=== PATIENT | female | born 1970 | race Two or more races ===

== ENCOUNTER 2022-06-06 07:34 | Day surgery (SDC) | payer MEDICAID ==
[2022-06-04 11:00] LABS: Basophils # (auto) 0.1 10 ^3/uL (0-0.2); Basophils % (auto) 0.6 % (0.0-2.0); Eosinophils # (auto) 0.3 10 ^3/uL (0-0.8); Eosinophils % (auto) 3.6 % (0.0-7.0); Hematocrit 36.9 % (36.0-46.0); Hemoglobin 11.4 g/dL (12.2-16.2); Lymphocytes # (auto) 1.8 10 ^3/uL (0.4-5.4); Lymphocytes % (auto) 19.3 % (10.0-50.0); Mean Corpuscular Hemoglobin 26.2 pg (28.0-32.0); Mean Corpuscular Volume 84.6 fL (80.0-100.0); Monocytes # (auto) 0.8 10 ^3/uL (0-1.3); Monocytes % (auto) 8.7 % (0.0-12.0); Neutrophils # (auto) 6.4 10 ^3/uL (1.6-8.6); Neutrophils % (auto) 67.8 % (37.0-80.0); Nucleated Red Blood Cells % 0.2 %; Red Blood Cells 4.36 10^6/uL (4.0-5.20); Urine Bacteria NONE SEEN /hpf (None Seen); Urine Blood 3+ /uL (Negative); Urine Specific Gravity 1.015 (1.001-1.035); Urine WBC 10 /hpf (0 - 5); White Blood Cell 9.5 10^3/uL (4.4-10.8)
[2022-06-04 11:11] LABS: INR 1.05 (0.9-1.15); Partial Thromboplastin Time 22.5 sec (24.6-33.4)
[2022-06-04 12:12] LABS: Albumin 3.4 g/dL (3.4-5.0); Calcium 8.6 mg/dL (8.5-10.1); Potassium 4.2 mmol/L (3.5-5.1)
[2022-06-04 12:17] LABS: BUN/Creatinine Ratio 13.2; Bilirubin, Total 0.5 mg/dL (0.2-1.0); Total Protein 6.4 g/dL (6.4-8.2)
[~2022-06-06] VITALS: Ht 160 cm; Wt 81.6 kg
[~2022-06-06 07:34] MED LIST: ATOR20TA50 PO; BUSP15TA60 PO; CLON0.5T3 PO; DULO60CA PO; GABA-339 PO; HYDR50CA2 PO; LISI40TA11 PO; OMEP20TA PO; SERT50TA19 PO
[2022-06-06] MEDS ORDERED: fentaNYL CITRATE 100 MCG/2 ML VL ONE (09:12)
[2022-06-06] MEDS ORDERED: MIDAZOLAM HCL 2MG/2ML 2ml VIAL (1mg/ml) ONE (09:13)
[2022-06-06] MEDS ORDERED: PROPOFOL 10 MG/ML 20 ML IV ONE (09:16)
[2022-06-06] MEDS ORDERED: DexAMETHasone SOD PHOS 10MG/1ML VIAL INJ ONE (09:16)
[2022-06-06] MEDS ORDERED: MEPERIDINE HCL (25 MG/ML) 1ML VIAL ONE (09:16)
[2022-06-06 09:55] VITALS: BP 154/82
== END 2022-06-06 10:08 | disposition home or self-care (01) ==
LOC: GI 07:34
PROVIDERS: ATTEND Internal Medicine Gastroenterology
DX: K62.5 Hemorrhage of anus and rectum (principal); D12.5 Benign neoplasm of sigmoid colon; D12.8 Benign neoplasm of rectum; K64.8 Other hemorrhoids; K57.30 Diverticulosis of large intestine without perforation or abscess without bleeding; K21.9 Gastro-esophageal reflux disease without esophagitis; F32.A Depression, unspecified; E66.9 Obesity, unspecified; I10 Essential (primary) hypertension; E78.5 Hyperlipidemia, unspecified; F41.9 Anxiety disorder, unspecified; G47.00 Insomnia, unspecified; Z90.49 Acquired absence of other specified parts of digestive tract; Z68.32 Body mass index [BMI] 32.0-32.9, adult; Z20.822 Contact with and (suspected) exposure to COVID-19
CPT/HCPCS: 36415; 45380; 45385; 80053; 81001; 81025; 84702; 85025; 85610; 85730; 88305; J1100; J2175; J2250; J2704; J3010; J7030; U0003; 99152

== ENCOUNTER 2022-08-08 09:46 | Day surgery (SDC) | payer MEDICAID ==
[2022-08-06 09:23] LABS: Basophils # (auto) 0.1 10 ^3/uL (0-0.2); Eosinophils # (auto) 0.4 10 ^3/uL (0-0.8); Lymphocytes # (auto) 2.3 10 ^3/uL (0.4-5.4); Monocytes # (auto) 0.9 10 ^3/uL (0-1.3); Nucleated Red Blood Cells % 0.1 %; White Blood Cell 9.6 10^3/uL (4.4-10.8)
[2022-08-06 09:25] LABS: Basophils % (auto) 1.2 % (0.0-2.0); Eosinophils % (auto) 3.7 % (0.0-7.0); Hematocrit 37.6 % (36.0-46.0); Hemoglobin 11.9 g/dL (12.2-16.2); Lymphocytes % (auto) 23.6 % (10.0-50.0); Mean Corpuscular Hemoglobin 23.3 pg (28.0-32.0); Mean Corpuscular Hgb Conc. 31.6 g/dL (32.0-36.0); Mean Corpuscular Volume 73.6 fL (80.0-100.0); Monocytes % (auto) 9.7 % (0.0-12.0); Neutrophils # (auto) 5.9 10 ^3/uL (1.6-8.6); Neutrophils % (auto) 61.8 % (37.0-80.0); Red Blood Cells 5.11 10^6/uL (4.0-5.20); Red Cell Distribution Width 25.4 % (11.8-14.3)
[2022-08-06 09:37] LABS: Urine Bacteria NONE SEEN /hpf (None Seen); Urine Blood 1+ /uL (Negative); Urine Specific Gravity 1.007 (1.001-1.035); Urine WBC 1 /hpf (0 - 5)
[2022-08-06 09:45] LABS: INR 1.03 (0.9-1.15); Partial Thromboplastin Time 26.7 sec (24.6-33.4)
[2022-08-06 09:57] LABS: Calcium 8.6 mg/dL (8.5-10.1); Potassium 4.3 mmol/L (3.5-5.1)
[2022-08-06 10:00] LABS: BUN/Creatinine Ratio 17.6; Bilirubin, Total 0.4 mg/dL (0.2-1.0)
[~2022-08-08] VITALS: Ht 160 cm; Wt 79.4 kg
[2022-08-08] MEDS ORDERED: LIDOCAINE 2% (LOCAL ANESTH.) PF 5ml SDV ONE (13:29)
[2022-08-08] MEDS ORDERED: MIDAZOLAM HCL 2MG/2ML 2ml VIAL (1mg/ml) ONE (13:29)
[2022-08-08] MEDS ORDERED: fentaNYL CITRATE 100 MCG/2 ML VL ONE (13:29)
[2022-08-08] MEDS ORDERED: ONDANSETRON HCL 4 MG/2 ML VIAL ONE (13:29)
[2022-08-08] MEDS ORDERED: PROPOFOL 10 MG/ML 20 ML IV ONE (13:57)
[2022-08-08 14:25] VITALS: BP 126/76
[2022-08-08] MEDS ORDERED: ONDANSETRON HCL 4 MG/2 ML VIAL IV PRN (14:45)
== END 2022-08-08 14:45 | disposition home or self-care (01) ==
LOC: GI 09:46
PROVIDERS: ATTEND Internal Medicine Gastroenterology
DX: K59.00 Constipation, unspecified (principal); K57.30 Diverticulosis of large intestine without perforation or abscess without bleeding; K64.8 Other hemorrhoids; K63.89 Other specified diseases of intestine; I10 Essential (primary) hypertension; E78.5 Hyperlipidemia, unspecified; G47.00 Insomnia, unspecified; F32.A Depression, unspecified; F41.9 Anxiety disorder, unspecified; K21.9 Gastro-esophageal reflux disease without esophagitis; Z90.49 Acquired absence of other specified parts of digestive tract; Z20.822 Contact with and (suspected) exposure to COVID-19
CPT/HCPCS: 36415; 45378; 80053; 81001; 81025; 84702; 85025; 85610; 85730; J2001; J2250; J2405; J2704; J3010; J7030; U0003

== ENCOUNTER 2023-05-19 06:00 | Emergency (ER) | payer MEDICAID ==
[~2023-05-19] VITALS: Ht 160 cm; Wt 70.4 kg
[~2023-05-19 06:00] MED LIST changes: -DULO60CA PO; +DULO60CA41 PO; -LISI40TA11 PO; +LISI40TA16 PO; +SERT-206 PO; -SERT50TA19 PO
[2023-05-19 07:20] VITALS: BP 126/82; PULSE 80; RESP 17; TEMP 98; O2SAT 97
== END 2023-05-19 09:45 | disposition home or self-care (01) ==
LOC: ER 06:00
DX: S92.354A Nondisplaced fracture of fifth metatarsal bone, right foot, initial encounter for closed fracture (principal); W10.8XXA Fall (on) (from) other stairs and steps, initial encounter; Y93.89 Activity, other specified; Y92.092 Bedroom in other non-institutional residence as the place of occurrence of the external cause; Y99.8 Other external cause status
CPT/HCPCS: 29515; 73630